=== PATIENT | male | born 1995 | race Caucasian/White ===

== ENCOUNTER 2017-07-26 00:01 | Emergency (ER) | payer OTHER, MEDICAID ==
[2017-07-26] MEDS: IBUPROFEN 600 MG TAB PO (02:55)
== END 2017-07-26 04:05 | disposition home or self-care (01) ==
LOC: FTE 00:01
DX: S62.304A Unspecified fracture of fourth metacarpal bone, right hand, initial encounter for closed fracture (principal); S62.306A Unspecified fracture of fifth metacarpal bone, right hand, initial encounter for closed fracture; J45.909 Unspecified asthma, uncomplicated; W22.8XXA Striking against or struck by other objects, initial encounter; Y92.9 Unspecified place or not applicable
CPT/HCPCS: 29125; 73130-RT; 99283-25